=== PATIENT | female | born 1945 | race Caucasian/White ===

== ENCOUNTER → 2020-02-02 11:47 | Outpatient (BNVA) | payer MEDICARE, OTHER, SELFPAY | PROVIDERS: PCP Family Medicine; Visit Provider Urology | DX: N32.81 Overactive bladder (principal); N20.0 Calculus of kidney | CPT/HCPCS: Q3014 ==

== ENCOUNTER 2021-01-22 09:24 | Outpatient (REF) | payer MEDICARE, OTHER, SELFPAY ==
--- NOTE | ~2021-01-22 | US_ITS ---
EXAMINATION: US RETROPERITONEAL LIMITED (RENAL ONLY) CLINICAL INFORMATION: Calculus of kidney. COMPARISON: None TECHNIQUE: Real-time imaging of the kidneys. FINDINGS: RIGHT KIDNEY: 10.4 x 4.2 x 5.8 cm (SAG x AP x TRV). The kidney is normal in size, contour, and echogenicity. Renal cortical thickness is normal. No renal calculi. There are anechoic cyst measuring 0.9 0.9 x 0.9 cm and parapelvic cyst 1.5 x 1.4 x 1.2 cm LEFT KIDNEY: 10.5 x 4.0 x 4.6 cm (SAG x AP x TRV). The kidney is normal in size, contour, and echogenicity. Renal cortical thickness is normal. No renal calculi or hydronephrosis. There are multiple parapelvic renal cysts. The largest one measuring 1.3 x 2.1 x 1.2 cm. US/US renal BI IMPRESSION: Bilateral renal cysts. There are no echogenic stones or hydronephrosis.
== END 2021-01-22 09:25 | disposition home or self-care (01) ==
LOC: HO.US 09:24
PROVIDERS: PCP Family Medicine; Visit Provider Urology
DX: N20.0 Calculus of kidney (principal)
CPT/HCPCS: 76775

== ENCOUNTER → 2021-02-13 10:52 | Outpatient (BNVA) | payer MEDICARE, OTHER, SELFPAY | PROVIDERS: PCP Family Medicine | DX: N28.1 Cyst of kidney, acquired (principal); N32.81 Overactive bladder | CPT/HCPCS: Q3014 ==

== ENCOUNTER 2022-01-31 10:00 | Outpatient (REF) | payer MEDICARE, OTHER, SELFPAY ==
--- NOTE | ~2022-01-31 | US_ITS ---
EXAMINATION: US RETROPERITONEAL LIMITED (RENAL ONLY) CLINICAL INFORMATION: Calculus of kidney. COMPARISON: Renal ultrasound 01/22/2021. TECHNIQUE: Real-time imaging of the kidneys. FINDINGS: RIGHT KIDNEY: 10.4 x 4.4 x 5.7 cm (SAG x AP x TRV). The kidney is normal in size, contour, and echogenicity. Renal cortical thickness is normal. No renal calculi or hydronephrosis. There are multiple peripelvic anechoic cysts. The largest cyst measures 3.0 x 1.4 x 3.7 cm. Lower pole cysts measure 1.0 x 0.7 x 1.0 cm and 0.7 x 0.4 x 0.7 cm. A mid pole cyst measures 0.8 x 0.7 x 0.7 cm. LEFT KIDNEY: 10.5 x 6.4 x 5.3 cm (SAG x AP x TRV). The kidney is normal in size, contour, and echogenicity. Renal cortical thickness is normal. No renal calculi or hydronephrosis. There are multiple anechoic cortical and peripelvic cysts. The largest peripelvic cyst measures 2.5 x 1.4 x 2.4 cm. Mid pole cysts measure 1.3 x 1.0 x 0.9 cm and 0.8 x 0.2 x 0.7 cm. There is echogenic vascular calcification in the mid pole measuring 0.5 x 0.5 x 0.5 cm. US/US renal BI IMPRESSION: 1. Bilateral renal cysts. 2. No echogenic stones or hydronephrosis is seen. 3. There is an echogenic vascular calcification in the mid pole of the left kidney.
== END 2022-01-31 10:01 | disposition home or self-care (01) ==
LOC: HO.US 10:00
DX: N20.0 Calculus of kidney (principal); N32.81 Overactive bladder
CPT/HCPCS: 76775

== ENCOUNTER → 2022-02-19 11:19 | Outpatient (BNVA) | payer MEDICARE, OTHER, SELFPAY | PROVIDERS: PCP Family Medicine; Visit Provider Nurse Practitioner Family | DX: N20.0 Calculus of kidney (principal); N28.1 Cyst of kidney, acquired | CPT/HCPCS: 51798; 99212 ==

== ENCOUNTER 2023-02-26 08:17 | Outpatient (REF) | payer MEDICARE, SELFPAY ==
--- NOTE | ~2023-02-26 | US_ITS ---
EXAMINATION: US RETROPERITONEAL LIMITED (RENAL ONLY) CLINICAL INFORMATION: Renal calculus. COMPARISON: Renal ultrasound 01/31/2022 and 01/22/2021. TECHNIQUE: Real-time imaging of the kidneys. FINDINGS: RIGHT KIDNEY: 10.2 x 4.5 x 3.9 cm (SAG x AP x TRV). The kidney is normal in size, contour, and echogenicity. Renal cortical thickness is normal. No hydronephrosis. There are multiple simple parapelvic cysts, largest is in the mid pole measuring 1.9 x 3.0 x 2.1 cm. No imaging follow-up is recommended. 0.3 x 0.2 x 0.3 cm nonobstructing calculus is seen. LEFT KIDNEY: 10.6 x 4.9 x 3.9 cm (SAG x AP x TRV). The kidney is normal in size, contour, and echogenicity. Renal cortical thickness is normal. No renal calculi or hydronephrosis. There are multiple simple parapelvic cysts, the largest is in the mid pole and measures 1.6 x 2.8 x 1.7 cm. No imaging follow-up is recommended. 0.4 x 0.2 x 0.3 cm lateral upper pole cortical calcification is seen. US/US renal BI IMPRESSION: 1. 0.3 cm nonobstructing calculus in the right kidney. 2. 0.4 cm lateral upper pole cortical calcification in the left kidney.
== END 2023-02-26 08:18 | disposition home or self-care (01) ==
LOC: HO.US 08:17
PROVIDERS: PCP Family Medicine; Visit Provider Nurse Practitioner Family
DX: N20.0 Calculus of kidney (principal)
CPT/HCPCS: 76775

== ENCOUNTER 2023-03-12 08:31 | Outpatient (AMB) | payer MEDICARE, SELFPAY ==
--- NOTE | 2023-03-12 08:49 | MHC.OFFVIS ---
Intake Intake Visit Reasons: 1y/US(set) Intake Note: Patient presents today for a follow-up: U/S Meds- Vesicare Allergies to Antibiotic- No Known Allergies Blood Thinner- Warfarin Post Void Residual: 83 Patient Symptoms: Patient stated having no symptoms of UTI, and mentioned Vesicare is working very well for her bladder. 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 She presents to the office today for a follow up of her overactive bladder as well as her history of nephrolithiasis. When asked patient reports to be doing well. She denies urinary issues. Recent renal imaging results reviewed with the patient today. Right kidney with no hydronephrosis. Are multiple simple peripelvic cyst largest in the mid pole measuring 3 cm. No imaging follow-up is recommended per radiology report. There is a 3 mm nonobstructing calculus seen. Left kidney with no hydronephrosis. There are multiple simple peripelvic cyst the largest in the mid pole measuring approximately 2.8 cm. No imaging follow-up recommended per radiology report. 4 mm lateral upper pole cortical calcification is seen. When asked she reports to be drinking plenty of water daily. She reports to be happy with current voiding parameters on 5 mg of VESIcare daily. When asked she denies urinary urgency, urinary frequency, incontinence, nocturia, hematuria, dysuria, foul smelling urine, changes to urinary stream, flank pain, fever, and or chills. In office urinalysis results reviewed with the patient today. PVR 83 mL. She discusses taking care for horse and spending time with her 2 grandchildren. She otherwise denies any other issues or concerns at this time. [facility] Medical History Renal cyst Review of Systems Const Reports no additional complaints Eyes Reports no additional complaints ENT Reports no additional complaints Card Reports no additional complaints Resp Reports no additional complaints GI Reports no additional complaints Reports as per HPI Musc Reports no additional complaints Neuro Reports no additional complaints Psych Reports no additional complaints Endo Reports no additional complaints Willam/Lymph Reports no additional complaints Aller/Immun Reports no additional complaints Physical Exam Const General: cooperative, healthy appearing, comfortable, no acute distress, well developed, alert and awake Nutritional Appearance: overweight Orientation/consciousness: patient oriented x3 Limitations: no limitations HEENT Head: Yes normal to inspection, Yes normocephalic and Yes atraumatic Ears: hearing grossly normal bilaterally Eyes General: appearance normal, both eyes and all related structures Neck Neck: Yes normal visual inspection and Yes trachea midline Chest Chest palpation & inspection: normal inspection of the chest Resp Effort & Inspection: normal respiratory effort and able to speak in complete sentences Cardio Rate: regular rate GI Inspection: Yes normal to inspection General: Yes no CVA tenderness Back/Spine/Pelvis Back: no CVA tenderness Skin General skin exam: no rashes or lesions noted Neuro General: patient oriented x3 Extrem General: Yes normal to inspection Psych Appearance: grossly normal and well kempt Mental Status: mental status grossly normal Speech and movement: Normal speech and movement present and Clear speech present Affect: normal affect Attitude: cooperative Thought process: Normal thought process present Thought content: Normal thought content present Insight: Fair insight present (Psych) Judgement: Fair judgement present (Psych) Office Procedures Post Void Residual Post Residual Void Post Void Residual (PVR): 83 [id number] Void Residual by ultrasound Results AMB Urinalysis, Automated UA Leukoctes 70 Gomez/uL Last Edit by Kasey Oshea CMA on 03/12/23 09:08 UA Nitrite Negative Last Edit by Kasey Oshea CMA on 03/12/23 09:08 UA Urobilinogen 0.2 mg/dL Last Edit by Kasey Oshea CMA on 03/12/23 09:08 UA Protein 15 mg/dL Last Edit by Kasey Oshea CMA on 03/12/23 09:08 UA pH 6.0 Last Edit by Kasey Oshea CMA on 03/12/23 09:08 UA Blood 25 Oumar/uL Last Edit by Kasey Oshea CMA on 03/12/23 09:08 UA Specific Meeker 1.030 Last Edit by Kasey Oshea CMA on 03/12/23 09:08 UA Ketone Negative Last Edit by Kasey Oshea CMA on 03/12/23 09:08 UA Bilirubin 0 mg/dL Last Edit by Kasey Oshea CMA on 03/12/23 09:08 UA Glucose 0 mg/dL Last Edit by Kasey Oshea CMA on 03/12/23 09:08 Results Reviewed Results Reviewed: Laboratory Last Values Urine pH (Auto) 6.0 03/12/23 09:04 Specific Meeker (Auto) 1.030 03/12/23 09:04 Urine Protein (Auto) 15 mg/dL 03/12/23 09:04 Glucose (UA)(Auto) 0 mg/dL 03/12/23 09:04 Urine Ketones (Auto) Negative 03/12/23 09:04 Urine Blood (Auto) 25 Oumar/uL 03/12/23 09:04 Urine Nitrite (Auto) Negative 03/12/23 09:04 Urine Bilirubin (Auto) 0 mg/dL 03/12/23 09:04 Urine Urobilinogen (Auto) 0.2 mg/dL 03/12/23 09:04 Leukocyte Esterase (Auto) 70 Gomez/uL 03/12/23 09:04 Date of Service: 02/26/23 EXAMINATION: US RETROPERITONEAL LIMITED (RENAL ONLY) FINDINGS: RIGHT KIDNEY: 10.2 x 4.5 x 3.9 cm (SAG x AP x TRV). The kidney is normal in size, contour, and echogenicity. Renal cortical thickness is normal. No hydronephrosis. There are multiple simple parapelvic cysts, largest is in the mid pole measuring 1.9 x 3.0 x 2.1 cm. No imaging follow-up is recommended. 0.3 x 0.2 x 0.3 cm nonobstructing calculus is seen. LEFT KIDNEY: 10.6 x 4.9 x 3.9 cm (SAG x AP x TRV). The kidney is normal in size, contour, and echogenicity. Renal cortical thickness is normal. No renal calculi or hydronephrosis. There are multiple simple parapelvic cysts, the largest is in the mid pole and measures 1.6 x 2.8 x 1.7 cm. No imaging follow-up is recommended. 0.4 x 0.2 x 0.3 cm lateral upper pole cortical calcification is seen. IMPRESSION: 1. 0.3 cm nonobstructing calculus in the right kidney. 2. 0.4 cm lateral upper pole cortical calcification in the left kidney. Assessment & Plan Assessment & Plan (1) Nephrolithiasis: Code(s): N20.0 - Calculus of kidney (2) Renal cyst: Code(s): N28.1 - Cyst of kidney, acquired (3) Overactive bladder: Code(s): N32.81 - Overactive bladder Plan In office urinalysis results reviewed with the patient today; as noted above. Patient currently denies any bothersome urinary issues or concerns. She reports be happy with current voiding parameters on 5 mg of VESIcare daily; will continue Recent renal imaging results reviewed with the patient today; as noted above. Discussed at length potential causes for renal cyst as well as nephrolithiasis. PVR 83 mL. Renal ultrasound in 1 year. Discussed, educated, and stressed the iportance of drinking adequate amount of water daily Follow-up in 1 year with imaging to be completed prior; or sooner with any issues, concerns, and or questions. Orders: Orders AMB Urinalysis Automated Today R33.9 - Retention of urine, unspecified AMB Post Void Residual by ultrasound Today N32.81 - Overactive bladder, R33.9 - Retention of urine, unspecified US renal BI 364 Days N20.0 - Calculus of kidney, N28.1 - Cyst of kidney, acquired Patient Instructions: The patient had an opportunity to ask questions regarding the treatment plan. All questions were answered. Physical exam, labs, and imaging were discussed and reviewed in detail. As well as risks, benefits, and discussion of treatment choices. No major barriers to understanding were identified. The patient expressed understanding and agreement with the above treatment plan. The patient was made aware they should contact our office by phone for worsening of their current condition, the appearance of new symptoms, or with any questions or concerns. Compliance is encouraged with any medications and follow up testing that is ordered. It is a privilege to be allowed the opportunity to participate in? your urological care.? Again, if you have any questions or concerns If you have any questions or concerns please do not hesitate to contact me. The office is [phone]. This note is constructed using voice recognition software. While every effort has been made to ensure accuracy dispatch manager errors may have been included. Yours sincerely, EMILY Siegel-BC Coding Level of Care Code Est Pt Level 3 (29523) Diagnoses Nephrolithiasis N20.0 Renal cyst N28.1 Overactive bladder N32.81 CPT Codes Post Residual Void - PVR CPT Code: 65426-[id number] Void Residual by ultrasound ([id number])
== END 2023-03-12 10:07 | disposition home or self-care (01) ==
PROVIDERS: Visit Provider Nurse Practitioner Family
DX: N20.0 Calculus of kidney (principal); N28.1 Cyst of kidney, acquired; N32.81 Overactive bladder; R33.9 Retention of urine, unspecified
CPT/HCPCS: 99213

== ENCOUNTER → 2023-03-12 08:31 | Outpatient (BNVA) | payer MEDICARE, SELFPAY | PROVIDERS: Visit Provider Nurse Practitioner Family | DX: N20.0 Calculus of kidney (principal); N28.1 Cyst of kidney, acquired; N32.81 Overactive bladder | CPT/HCPCS: 51798; 81003; 99212 ==

== ENCOUNTER 2024-03-02 11:04 | Outpatient (REF) | payer MEDICARE, SELFPAY ==
--- NOTE | ~2024-03-02 | US_ITS ---
EXAMINATION: US RETROPERITONEAL LIMITED (RENAL ONLY) CLINICAL INFORMATION: Calculus of kidney. COMPARISON: None available. TECHNIQUE: Retroperitoneal ultrasound imaging with attention the kidneys was performed. FINDINGS: RIGHT KIDNEY: 10.9 x 4.6 x 5.5 cm (SAG x AP x TRV). The kidney is normal in size, contour, and echogenicity. Renal cortical thickness is normal. . Multiple parapelvic cyst There is anechoic cyst upper pole measuring 1.1 x 0.92 x 0.75 cm, 0.58 x 0.60 x 0.47 and echogenic stone in mid pole measuring 0.15 x 0.22 x 0.22 cm. No hydronephrosis. LEFT KIDNEY: 9.7 x 4.4 x 4.4 cm (SAG x AP x TRV). The kidney is normal in size, contour, and echogenicity. Renal cortical thickness is normal. There are multiple anechoic parapelvic cyst. There is anechoic cyst in upper pole measuring 0.45 x 0.40 x 0.50 cm in mid pole laterally measuring 1.0 x 0.71 x 1.3 cm.. No hydronephrosis. US/US renal BI IMPRESSION: Multiple bilateral renal cysts. Nonobstructive echogenic stone midpole right kidney without caliectasis or hydronephrosis. Electronically signed by: Ras Wakefield MD 03/03/2024 08:57 AM EST
== END 2024-03-02 11:05 | disposition home or self-care (01) ==
LOC: HO.US 11:04
PROVIDERS: PCP Family Medicine; Visit Provider Nurse Practitioner Family
DX: N20.0 Calculus of kidney (principal); N28.1 Cyst of kidney, acquired
CPT/HCPCS: 76775

== ENCOUNTER → 2024-03-02 11:06 | Outpatient (BNV) | payer MEDICARE, SELFPAY | PROVIDERS: PCP Family Medicine; Visit Provider Radiology Diagnostic Radiology | DX: N20.0 Calculus of kidney (principal) | CPT/HCPCS: 76775 ==

== ENCOUNTER 2024-03-30 11:31 | Outpatient (AMB) | payer MEDICARE, SELFPAY ==
--- NOTE | 2024-03-30 11:31 | A.OFFVIS_ITS ---
Intake Visit Reasons: Followup/Imaging(set) Intake Note: Patient presents today for tele visit follow up on: OAB, Kidney Stone, and Ultrasound Results Meds- Vesicare Allergies to Antibiotic- No Known Allergies Blood Thinner- Apixaban Patient Symptoms: Patient stated having no symptoms of UTI, and mentioned Mariaelena shaw is working very well for her bladder. 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 She presents to the office today for a follow up of her overactive bladder as well as her history of nephrolithiasis. When asked patient reports to be doing well. She denies urinary issues. Recent renal imaging results reviewed with the patient today. 03/13 bilateral kidneys are normal in size, contour, and echogenicity. Multiple bilateral renal cysts that are noted. Nonobstructive echogenic stone mid pole right kidney measuring approximately 2 mm. No hydronephrosis noted bilaterally. When asked she reports to be drinking plenty of water daily. She reports to be happy with current voiding parameters on 5 mg of VESIcare daily. When asked she denies urinary urgency, urinary frequency, incontinence, nocturia, hematuria, dysuria, foul smelling urine, changes to urinary stream, flank pain, fever, and or chills. She discusses taking care of her horse and spending time with her 2 grandchildren. She otherwise denies any other issues or concerns at this time. [facility] Medical History (Reviewed 03/12/23 @ 09:17 by MARTI Siegel Renal cyst Review of Systems Const Reports no additional complaints Eyes Reports no additional complaints ENT Reports no additional complaints Card Reports no additional complaints Resp Reports no additional complaints GI Reports no additional complaints Reports as per HPI Musc Reports no additional complaints Neuro Reports no additional complaints Psych Reports no additional complaints Endo Reports no additional complaints Willam/Lymph Reports no additional complaints Aller/Immun Reports no additional complaints Physical Exam Const General: cooperative, healthy appearing, comfortable, no acute distress, well developed, alert and awake Resp Effort & Inspection: normal respiratory effort and able to speak in complete sentences Psych Appearance: grossly normal Speech and movement: Clear speech present Affect: normal affect Attitude: cooperative Thought process: Normal thought process present Thought content: Normal thought content present Insight: Fair insight present (Psych) Judgement: Fair judgement present (Psych) Telehealth Telehealth Telehealth Platform: Consumr Location of provider rendering services: practice address Location of patient: address on file Patient Identification confirmed using: Name, : Yes Telehealth method: video Patient verbally consented to treatment: Yes Patient verbally consented to billing insurance company: Yes Patient informed of any privacy concerns related to visit: Yes Minutes spent on Phone/Video with Pt.: 15 Results Reviewed Results Reviewed: Date of Service: 03/02/24 EXAMINATION: US RETROPERITONEAL LIMITED (RENAL ONLY) FINDINGS: RIGHT KIDNEY: 10.9 x 4.6 x 5.5 cm (SAG x AP x TRV). The kidney is normal in size, contour, and echogenicity. Renal cortical thickness is normal. . Multiple parapelvic cyst There is anechoic cyst upper pole measuring 1.1 x 0.92 x 0.75 cm, 0.58 x 0.60 x 0.47 and echogenic stone in mid pole measuring 0.15 x 0.22 x 0.22 cm. No hydronephrosis. LEFT KIDNEY: 9.7 x 4.4 x 4.4 cm (SAG x AP x TRV). The kidney is normal in size, contour, and echogenicity. Renal cortical thickness is normal. There are multiple anechoic parapelvic cyst. There is anechoic cyst in upper pole measuring 0.45 x 0.40 x 0.50 cm in mid pole laterally measuring 1.0 x 0.71 x 1.3 cm.. No hydronephrosis. IMPRESSION: Multiple bilateral renal cysts. Nonobstructive echogenic stone midpole right kidney without caliectasis or hydronephrosis. Assessment & Plan Assessment & Plan (1) Nephrolithiasis: Code(s): N20.0 - Calculus of kidney Category: Medical (2) Renal cyst: Code(s): N28.1 - Cyst of kidney, acquired Category: Medical (3) Overactive bladder: Code(s): N32.81 - Overactive bladder Category: Medical Plan Recent renal imaging results reviewed with the patient today; as noted above. Patient currently denies any bothersome urinary issues or concerns. She reports be happy with current voiding parameters on 5 mg of VESIcare daily; will continue Discussed at length potential causes for renal cyst as well as nephrolithiasis. Renal ultrasound in 1 year. Discussed, educated, and stressed the importance of continuing to drink plenty water daily Follow-up in 1 year with imaging to be completed prior; or sooner with any issues, concerns, and or questions. Orders: Orders US renal BI 1 Year N20.0 - Calculus of kidney Patient Instructions: The patient had an opportunity to ask questions regarding the treatment plan. All questions were answered. Physical exam, labs, and imaging were discussed and reviewed in detail. As well as risks, benefits, and discussion of treatment choices. No major barriers to understanding were identified. The patient expressed understanding and agreement with the above treatment plan. The patient was made aware they should contact our office by phone for worsening of their current condition, the appearance of new symptoms, or with any questions or concerns. Compliance is encouraged with any medications and follow up testing that is ordered. It is a privilege to be allowed the opportunity to participate in? your urological care.? Again, if you have any questions or concerns If you have any questions or concerns please do not hesitate to contact me. The office is [phone]. This note is constructed using voice recognition software. While every effort has been made to ensure accuracy live hanger errors may have been included. Yours sincerely, OSMAN Siegel Coding Level of Care Code Tele Est Pt Level 3 (05627) Diagnoses Nephrolithiasis N20.0 Renal cyst N28.1 Overactive bladder N32.81
--- OUTSIDE RECORDS SUMMARY | 2024-03-30 13:10 | XMS_ITS | Continuity of Care Document ---
Author Organization [place] - [facility],, MILADYS AGEE MD Address [address] [facility] [address] [place] [address] Care Team Providers Care Dietary Aide Cook Name Role Phone MASOOD SMITH Primary Care Provider Assessment No assessment recorded. Plan of Treatment Reminders Order Date Submit Date Provider Last Modified By Organization Details Last Modified Time Details Appointments None recorded. Lab cytology report, thin prep, smear or scraping, cervical or vaginal 2024 025 [facility], [address], [place], [address], 14:21:07 Referral None recorded. Procedures None recorded. Surgeries None recorded. Imaging MAMMO, screening, digital, bilateral - Breast Aspiration and/or Biopsy if needed 2024 025 [facility], [address], [place], [address], 12:01:39 bone density 2024 025 [facility], [address], [address], [place], [address], 12:01:39 Medication Orders None recorded. Patient TargetsNo targets recorded. Patient Instructions Encounter Date Encounter Id Patient Instructions Last Modified By Organization Details Last Modified Time 03/05/2024 [id number] advance beneficiary notice information Not available 03/05/2024 11:30:47 advance care planning for heart failure: care instructions Not available 03/05/2024 11:30:47 atrophic vaginitis: care instructions Not available 03/05/2024 11:30:47 learning about healthy weight [email or web address] Not available 03/05/2024 11:30:47 She is here for annual exam, is doing well, still working at the [employer]. She appears to be doing well. Monthly self breast exam was taught, and stressed, and is advised to call if she discovers any new mass in the breast. Not available 03/05/2024 11:30:55 Reason for Referral None Reported. 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 Procedures Surgical History Date Name Laterality Status Provider Name and Address Organization Details Recorded Time 04/08/19 23 Most Recent Mammogram completed Mayra Cuevas [place] - [facility], 12/19/2022 10:27:32 04/08/19 23 Most Recent Bone Density completed Mayra Cuevas [place] - [facility], 12/19/2022 10:27:25 08/27/19 18 incision of thoracic wall and diaphragm completed Aviva Navarrete [place] - [facility], 12/18/2020 09:49:57 02/17/19 03 Other completed Miladys Agee MD [address], [place], [address], [place] - [facility], 11/24/2013 09:24:59 02/17/18 81 Other completed Aviva Navarrete [place] - [facility], 10/13/2012 08:25:29 02/17/18 77 Total Abdominal Hysterectomy completed Miladys Agee MD [address] [facility],[address], [place], [address], [place] [facility], 10/13/2012 09:24:34 Imaging Results None recorded. Procedure Notes None recorded. Medical Equipment None Reported. Allergies No known drug allergies Medications Name Sig Start Date Stop Date Status Note LastModified by Organization Details LastModified Time amoxicillin 500 mg capsule active Not Available Not Available Not Available silver sulfadiazin e 1 % topical cream 12/18 completed Not Available Not Available Not Available doxycycline hyclate 100 mg capsule TAKE 1 CAPSULE BY MOUTH TWICE A DAY FOR 7 DAYS 12/19 completed Not Available Not Available Not Available donepezil 5 mg tablet 12/18 completed Not Available Not Available Not Available trazodone 50 mg tablet 12/18 completed Not Available Not Available Not Available azithromyci n 250 mg tablet TAKE 2 TABLETS BY MOUTH TODAY, THEN TAKE 1 TABLET DAILY FOR 4 DAYS DIRECTED 03/05 completed Not Available Not Available Not Available ibuprofen 800 mg tablet active Not Available Not Available Not Available Lidocaine Viscous 2 % mucosal solution 03/05 completed Not Available Not Available Not Available benzonatate 200 mg capsule TAKE 1 CAPSULE BY MOUTH THREE TIMES A DAY FOR 10 DAYS 12/19 completed Not Available Not Available Not Available hydrocodone 5 mg-acetamin ophen 325 mg tablet 12/18 completed Not Available Not Available Not Available donepezil 10 mg tablet TAKE 1 TABLET BY MOUTH EVERY DAY AT BEDTIME FOR 10 DAYS active Not Available Not Available No t Available sucralfate 1 gram tablet TAKE 1 TABLET BY MOUTH 3 TIMES A DAY BEFORE MEALS AND AT BEDTIME FOR 14 DAYS 12/19 completed Not Available Not Available Not Available prednisone 20 mg tablet TAKE 2 TABLETS BY MOUTH EVERY DAY FOR 5 DAYS 03/05 completed Not Available Not Available Not Available warfarin 2.5 mg tablet TAKE 2-4 TABS BY MOUTH ONCE DAILY DIRECTED BY THE [facility]. DOSE INCREASE 12/19 completed Not Available Not Available Not Available peg-electro lyte solution 420 gram oral solution 12/18 completed Not Available Not Available Not Available omeprazole 40 mg capsule,del ayed release 12/18 completed Not Available Not Available Not Available oxycodone-a cetaminophe n 5 mg-325 mg tablet 12/18 completed Not Available Not Available Not Available citalopram 20 mg tablet TAKE 1 TABLET BY MOUTH TWICE A DAY active Not Available Not Available No t Available trazodone 100 mg tablet TAKE 1 TABLET BY MOUTH EVERYDAY AT BEDTIME active Not Available Not Available No t Available benzonatate 100 mg capsule TAKE 1 CAPSULE BY MOUTH 3 TIMES A DAY FOR 5 DAYS NEEDED FOR COUGH 03/05 completed Not Available Not Available Not Available doxycycline monohydrate 100 mg capsule TAKE 1 CAPSULE BY MOUTH TWICE A DAY FOR 7 DAYS 12/19 completed Not Available Not Available Not Available pantoprazol e 40 mg tablet,karen yed release TAKE 1 TABLET BY MOUTH TWICE DAILY FOR 30 DAYS active Not Available Not Available No t Available hydrocodone 7.5 mg-acetamin ophen 750 mg tablet active Not Available Not Available No t Available lisinopril 10 mg tablet active Not Available Not Available Not Available prednisone 50 mg tablet TAKE 1 TABLET (ORAL) DAILY FOR 5 DAYS TAKE IN THE MORNING 12/19 completed Not Available Not Available Not Available diclofenac sodium 75 mg tablet,karen yed release TAKE 1 TABLET BY MOUTH TWICE A DAY active Not Available Not Available No t Available nefazodone 100 mg tablet active Not Available Not Available Not Available ibuprofen 600 mg tablet 12/18 completed Not Available Not Available Not Available albuterol sulfate HFA 90 mcg/actuati on aerosol inhaler INHALE 1 PUFF EVERY 4 HOURS NEEDED FOR SHORTNESS OF BREATH OR WHEEZING active Not Available Not Available No t Available fluticasone propionate 50 mcg/actuati on nasal spray,suspe nsion INSERT 2 PUFFS EACH INTRANASA L - BILATERAL LY DAILY FOR 30 DAYS active Not Available Not Available No t Available amoxicillin 875 mg-potassiu m clavulanate 125 mg tablet TAKE 1 TABLET BY MOUTH EVERY 12 HOURS FOR 7 DAYS 03/05 completed Not Available Not Available Not Available oxycodone 5 mg tablet 12/18 completed Not Available Not Available Not Available enoxaparin 100 mg/mL subcutaneou s syringe INJECT 1 ML INTO THE SKIN EVERY 12 HOURS DIRECTED BY [facility] 12/19 completed Not Available Not Available Not Available azithromyci n 500 mg tablet TAKE 1 TABLET BY MOUTH EVERY DAY FOR 5 DAYS START ON 04/10/2204/17 completed Not Available Not Available Not Available Premarin 0.625 mg/gram vaginal cream INSERT 0.5 G VAGINALLY EVERY AT BEDTIME. 12/18 completed Not Available Not Available Not Available rosuvastati n 10 mg tablet TAKE 1 TABLET BY MOUTH EVERY DAY active Not Available Not Available No t Available memantine 10 mg tablet TAKE 1 TABLET BY MOUTH EVERY DAY FOR 2 WEEKS, THEN INCREASE TO 1 TABLET BY MOUTH TWICE A DAY active Not Available Not Available No t Available solifenacin 5 mg tablet active Not Available Not Available Not Available chlorhexidi ne gluconate 0.12 % mouthwash active Not Available Not Available No t Available aspirin active Not Available Not Avail able Not Available vitamin E active Not Available Not Sharla ilable Not Available Calcium 500 active Not Available Not A vailable Not Available Zostavax (PF) 19,400 unit/0.65 mL subcutaneou s suspension active Not Available Not Available N ot Available vitamin B comp and C no.3 active Not Available Not Available Not Available peg 3350-electr olytes 236 gram-22.74 gram-6.74 gram-5.86 gram solution TAKE 8 OUNCES BY MOUTH DIRECTED BY 12/18 completed Not Available Not Available Not Available Myrbetriq 25 mg tablet,exte nded release 12/18 completed Not Available Not Available Not Available Eliquis 5 mg tablet TAKE 1 TABLET BY MOUTH TWICE A DAY active Not Available Not Available No t Available Afluria 0379-5005(P F) 45 mcg (15 mcg x 3)/0.5 mL intramuscul ar syringe TO BE ADMINISTE RED BY PHARMACIS T FOR IMMUNIZAT ION active Not Available Not Available No t Available Fluzone High-Dose 2014- (PF) 180 mcg/0.5 mL intramuscul ar syringe TO BE ADMINISTE RED BY PHARMACIS T FOR IMMUNIZAT ION active Not Available Not Available No t Available Fluvirin (PF) 45 mcg (15 mcg x 3)/0.5 mL intramuscul ar syringe ADM 0.5ML IM UTD active Not Available Not Available No t Available Fluzone High-Dose 8069-9328 (PF) 180 mcg/0.5 mL intramuscul ar syringe ADM 0.5ML IM UTD active Not Available Not Available No t Available Fluzone High-Dose (PF) 180 mcg/0.5 mL intramuscul ar syringe ADM 0.5ML IM UTD active Not Available Not Available No t Available Vitals Date Recorded Body weight Body mass index (BMI) Body height Heart rate Systolic blood pressure Diastolic blood pressure Provider Name and Address Organization Details Last Updated DateTime 5 26819.4 5 g 38.8 kg/m2 160.02 cm 59 /min 126 mm[Hg] 78 mm[Hg] Aviva Navarrete [place] - [facility], 5 11:04:10 Social History Question Answer Notes LastModified by Organizat ion Details LastModified Time Tobacco Smoking Status Former Smoker Not Available [facility] 12/21/2019 03:19:42 What Is Your Level Of Alcohol Consumption? None [id number] Information not available 12/21/2019 What Is Your Level Of Caffeine Consumption? None [id number] Information not available 12/21/2019 In The 14 Days Before Symptom Onset, Have You Had Close Contact With A Laboratory-confir med COVID-19 While That Case Was Ill? No Information not available 12/18/2020 In The 14 Days Before Symptom Onset, Have You Had Close Contact With A Person Who Is Under Investigation For COVID-19 While That Person Was Ill? No Information not available 12/18/2020 Have You Been To An Area Known To Be High Risk For COVID-19? No Information not available 12/18/2020 Are You Currently Employed? No Information not available 12/18/2020 What Type Of Diet Are You Following? REGULAR [id number] Information not available 12/21/2019 Which Illicit Or Recreational Drugs Have You Used? No [id number] Information not available 12/21/2019 Do You Reside In Or Have You Traveled To An Area Where Ebola Virus Transmission Is Active? No [id number] Information not available 12/21/2019 Do You Or Have You Ever Used E-cigarettes Or Vape? Never Used Electronic Cigarettes [id number] Information not available 12/21/2019 Education 2 Year College Informatio n not available 10/13/2012 What Is The Highest Grade Or Level Of School You Have Completed Or The Highest Degree You Have Received? [id number] Information not available 12/18/2020 What Is Your Occupation? Retired [id number] Information not available 12/21/2019 How Many Days In The Past Year Have You Had A Heavy Drinking Consumption (4+ Female, 5+ Male)? 0 Information no t available 12/16/2016 Are There Any Guns Present In Your Home? No Information not available 12/18/2020 High Number Of Sexual Partners No Information not available 12/16/2016 To Which Gender Do You Self-identify? Female Information not available 12/16/2016 Marital Status Single Informatio n not available 10/13/2012 What Was The Date Of Your Most Recent Tobacco Screening? 03/05/2024 Information not available 03/05/2024 What Is Your Relationship Status? Single Information not available 12/18/2020 Are You Sexually Active? Yes [id number] Information not available 12/21/2019 Do You Or Have You Ever Used Smokeless Tobacco? Never Used Smokeless Tobacco [id number] Information not available 12/21/2019 How Much Tobacco Do You Smoke? No [id number] Information not available 12/21/2019 General Stress Level Low Information not available 10/13/2012 Do You Feel Stressed (tense, Restless, Nervous, Or Anxious, Or Unable To Sleep At Night)? [id number] Information not available 03/05/2024 Do You Use Any Illicit Or Recreational Drugs? No Information not available 12/18/2020 How Many Years Have You Smoked Tobacco? 15 [id number] Information not available 12/21/2019 Have You Recently (within The Last 12 Weeks, Or During A Current ) Traveled To Or Lived In A Zika-affected Area? No Information not available 12/18/2018 Do You Or Have You Ever Used Any Other Forms Of Tobacco Or Nicotine? No Information not available 12/18/2020 Sex: Female Functional Status Question Answer Note LastModified by Organization D etails LastModified Time What is your exercise level? Moderate [id number] Information not available 12/21/2019 Mental Status None recorded. Family History Relationship Description Onset Age of this Age Resolved Age Notes LastModified by Organization Details LastModified Time Brother Malignant neoplastic disease 60 pancre atic (previ ously record ed as Cancer ) Not available 11/30/2014 09:04:24 Father Heart disease previo usly record ed as Heart Proble m Not available 11/30/2014 09:04:24 Mother Heart disease previo usly record ed as Heart Proble m Not available 11/30/2014 09:04:24 Medical History Condition Response Anesthesia complications Y High Blood Pressure N Autoimmune Condition N Kidney or Bladder Problems Y Thyroid Problems N Depression Y Lung Disease N GI Problems N Defects or Inherited Disease N Anemia N History of Ovarian Cancer N History of Breast Cancer N DUSTIN exposure N BRCA testing in past N Osteopenia N Psychiatric Illness N Anxiety Disorder N Diabetes N Arthritis Y Headaches or Migraines N Infertility N Asthma N History of Cancer Y Endometriosis N Hepatitis N Heart Disease N Hypertension N Osteoporosis N Gynecological History Statement/Question Response If Post Menopausal, Age at Menopause 30 Age at Menarche 11 Most Recent Mammogram 04/08/2022 Age at First Child 19 Most Recent Bone Density 04/08/2022 Obstetrics History GPAL:G 1 P 1 0 0 1 Type Value Full Term 1 Living 1 Total 1 Immunizations Vaccine Type Date Status Note Provider Nam e and Address Organization Details Recorded Time zoster live 2 completed [place] [facility], 12/19/2022 10:22:24 influenza, unspecified formulation 2 completed [place] Zhang in [facility], 12/19/2022 10:22:24 Influenza, split virus, trivalent, preservative 4 completed [place] Zhang in [facility], 12/19/2022 10:22:24 Influenza, split virus, quadrivalent, preservative 7 completed Mayra veragra [place] [facility], 12/19/2022 10:22:24 Influenza, split virus, quadrivalent, preservative 9 completed Aviva vergara [place] - [facility], 12/18/2018 08:53:19 Influenza, split virus, quadrivalent, preservative 1 completed Mayra vergara [place] - [facility], 12/19/2022 10:22:24 COVID-19, mRNA, LNP-S, PF, 100 mcg/0.5mL dose or 50 mcg/0.25mL dose 1 completed Mayra vergara [place] - [facility], 12/19/2022 10:22:24 Influenza, split virus, quadrivalent, preservative 2 completed Mayra vergara [place] - [facility], 12/19/2022 10:22:24 Influenza, adjuvanted, trivalent, PF 8 completed Mayra vergara [place] - [facility], 12/19/2022 10:22:24 Influenza, high-dose, quadrivalent, PF 1 completed Mayra vergara [place] - [facility], 12/19/2022 10:22:24 Influenza, adjuvanted, quadrivalent, PF 2 completed Mayra vergara [place] - [facility], 12/19/2022 10:22:24 COVID-19, mRNA, LNP-S, PF, 100 mcg/0.5mL dose or 50 mcg/0.25mL dose 1 completed Mayra vergara [place] - [facility], 12/19/2022 10:22:24 COVID-19, mRNA, LNP-S, PF, 100 mcg/0.5mL dose or 50 mcg/0.25mL dose 1 completed Mayra vergara [place] - [facility], 12/19/2022 10:22:24 COVID-19, mRNA, LNP-S, PF, 100 mcg/0.5mL dose or 50 mcg/0.25mL dose 1 completed Mayra Cuevas null, [place] - [facility], 12/19/2022 10:22:24 COVID-19, mRNA, LNP-S, bivalent, PF, 50 mcg/0.5 mL or 25mcg/0.25 mL dose 2 completed Mayra Cuevas null, [place] - [facility], 12/19/2022 10:22:24 pneumococcal polysaccharide PPV23 0 completed Mayra vergara, [place] - [facility], 12/19/2022 10:22:24 influenza, unspecified formulation 2 completed Mayra vergara, [place] - [facility], 12/19/2022 10:22:24 zoster live 2 completed Mayra Cuevas null, [place] - [facility], 12/19/2022 10:22:24 zoster live 2 completed Mayra vergara, [place] - [facility], 12/19/2022 10:22:24 Influenza, high-dose, trivalent, PF 7 completed Mayra Cuevas null, [place] - [facility], 12/19/2022 10:22:24 Influenza, split virus, trivalent, preservative 4 completed Mayra Cuevas null, [place] [facility], 12/19/2022 10:22:24 Influenza, split virus, trivalent, preservative 1 completed Mayra Cuevas null, [place] - [facility], 12/19/2022 10:22:24 Influenza, split virus, trivalent, preservative 0 completed Mayra Cuevas null, [place] - [facility], 12/19/2022 10:22:24 Influenza, split virus, trivalent, preservative 2 completed [place]NA [place] in [facility], 12/19/2022 10:22:24 Influenza, split virus, trivalent, PF 0 completed [place] Zhang in [facility], 12/19/2022 10:22:24 Influenza, split virus, trivalent, PF 6 completed [place] Zhang in [facility], 12/19/2022 10:22:24 Td (adult), 2 Lf tetanus toxoid, preservative free, adsorbed 0 completed Mayra vergara [place] - [place] [facility], 12/19/2022 10:22:24 Past Encounters Encounter ID Performer Location Encounter Start Date Encounter Closed Date Diagnosis/Indication Diagnosis SNOMED-CT Code Diagnosis ICD10 Code Diagnosis Note [id number] MD MILADYS Mane MD [address] [facility] [facility] [place] [address] 03/05/2024 10:56:45 03/05/2024 12:01:39 History of clinical finding in subject 834283927 Z91.89 Screening mammography 24 105963 Z12.31 Advance care planning 71 3339348 Z71.89 Screening for osteoporosis 867488053 N95.8 Health Concerns Section Related Observation LastModified by Organization Detai ls LastModified Time None Recorded Concern Status LastModified by Organization Details LastModified Time None Recorded Payers Encounter Date Sequence Insurance Name Policy Number Policy Steward Covered Member ID Steward Member ID Guarantor Name 03/05/2024 1 [facility] (MEDICARE REPLACEMENT/A DVANTAGE - PPO) [id number] Mari Henderson [id number] Mari Henderson Notes Date Note Type Note Provider Name and Address Organization Details Recorded Time 03/05/2024 text/html She is here for annual exam, is doing well, still working at the [employer].She appears to be doing well.. Miladys Agee MD [address], [place], [address], [place] - [facility], 03/05/2024 11:31:40 OBGyn Episode No OBEpisode recorded.
--- OUTSIDE RECORDS SUMMARY | 2024-03-30 13:10 | XMS_ITS | Clinical Summary ---
Author Organization [facility] Address [address] [place] [address] Phone Care Team Providers Care Registered Nurse Midwife Name Role Phone Dayton Bautista Primary Care Provider [phone] Allergies No known active allergies Medications Acetaminophen 325 MG capsule 650 mg 9 Active Cobalamin Combinations (B-12) 100-5000 MCG sublingual tablet 9 Active ASPIRIN 81 PO Active Fexofenadine-Pseu doephedrine (LEO-D 12 HOUR PO) Take by mouth 6 Active Calcium Carb-Cholecalcife rol (CALCIUM 500/D PO) Calcium 500 Active docusate calcium (SURFAK) 240 MG capsule Take 250 mg by mouth 6 Active Misc Natural Products (GLUCOSAMINE CHONDROITIN ADV PO) Take by mouth 9 Active Melatonin 2.5 MG capsule 10 mg 9 Active Multiple Vitamins-Minerals (MULTIVITAMIN ADULT EXTRA C PO) Take by mouth 6 Active B Complex-C (VITAMIN B + C COMPLEX PO) vitamin B comp and C no.3 Active alpha tocopherol (VITAMIN E) 200 units capsule Take 400 Int'l Units by mouth 6 Active citalopram (CeleXA) 20 MG tablet 2 Active donepezil (ARICEPT) 10 MG tablet 1 Active Krill Oil ([place]-3) 500 MG capsule Take 1,000 mg by mouth 11/12/201 9 Active Probiotic Product (ALIGN PO) Take 4 mg by mouth 9 Active solifenacin (VESICARE) 5 MG tablet 1 Active traZODone (DESYREL) 100 MG tablet 1 Active pantoprazole (PROTONIX) 40 MG EC tablet Take 1 tablet by mouth in the morning and 1 tablet in the evening. Active rosuvastatin (CRESTOR) 10 MG tablet Take 1 tablet by mouth at bed time 4 Active memantine (NAMENDA) 10 MG tablet Take 10 mg by mouth in the morning and 10 mg in the evening. 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 06/11/2023 Dysphagia 06/11/2023 Eczema 06/11/2023 Erosive esophagitis 06/11/2023 H/O: pulmonary embolus 06/11/2023 History of hernia repair 06/11/2023 Hypercoagulability state 06/11/2023 Hyperlipidemia 06/11/2023 Long-term current use of anticoagulant Major depression in full remission 06/11/2023 Pulmonary embolism 06/11/2023 Paraesophageal hernia 06/11/2023 Severe obesity 06/11/2023 Stress incontinence 06/11/2023 Stricture of esophagus 06/11/2023 Thromboembolism of vein 06/11/2023 Multiple renal cysts 04/24/2021 Nephrolithiasis 04/24/2021 Abnormal renal function 03/13/2021 Cognitive disorder 03/13/2021 Coronary atherosclerosis 03/13/2021 Cyst of pancreas 03/13/2021 Overview (03/13/2021): Dr. Patel History of malignant neoplasm of colon 2 History of adenomatous polyp of colon 03/13/2021 Hydronephrosis 03/13/2021 Lung mass 03/13/2021 Overview (03/13/2021): Dr. Chico Carroll Renal failure syndrome 03/13/2021 Renal function tests outside reference range 01/ Senile osteopenia 03/13/2021 Vitamin D deficiency 03/13/2021 Primary osteoarthritis of right knee 01/08/2021 Atrophic vaginitis 12/16/2016 Immunizations Name Administration Dates Next Due Influenza Whole 11/27/2018 Influenza, Quadrivalent, Wit h Preservative 10/24/2020,11/24/2018,11/20/2016 Influenza, Unspecified 11/08/2022,2021,10/29/2021,10/24,09/30/2020,10/30/2019,11/24/2018 ,10/26/2017,11/20/2016,11/30/2015,02/2013,12/18/2011,02/17/2011, 1,12/06/2009 Moderna SARS-COV-2 12/08/2020,,04/05/2020,02/20 Moderna Sars-cov-2 (Covid-19 ) Vaccine, Mrna, Georgi Protein 11/08/2022 Pneumococcal Polysaccharide 03/20/2009 RSV RECOMBINANT 12/27/2022 SARS-CoV-2, Unspecified 11/13/2021 Td, Unspecified 03/03/2009 Tdap 12/26/2019 Zoster 10/16/2011,02/17/2011 Family History Medical History Relation Comments Cancer Brother Heart disease Father Heart disease Mother Stroke Mother Relation Status Comments Brother Father Mother Social History Tobacco Use Types Packs/Day Years Used Date Smoking Tobacco: Never Smokeless Tobacco: Never Tobacco Cessation:Counseling Given: No Alcohol Use Standard Drinks/Week Comments No 0 (1 standard drink = 0.6 oz pur e alcohol) Comments Unknown Sex and Gender Information Value Date Recorded Sex Assigned at Not on file Legal Sex Female 4:50 PM EST Gender Identity Not on file Sexual Orientation Not on file Last Filed Vital Signs Vital Sign Reading Time Taken Comments Blood Pressure 120/76 06/11/2023 3:30 PM EDT Pulse 80 06/11/2023 3:30 PM EDT Temperature - - Respiratory Rate - - Oxygen Saturation - - Inhaled Oxygen Concentration - - Weight 102 kg (225 lb) 06/11/2023 3:30 PM EDT Height - - Body Mass Index - - Plan of Treatment Upcoming Encounters Date Type Department Care Team (Late st Contact Info) Description 06/16/2024 2:45 PM EDT Office Visit [facility] [address] [place] [id number] Chase Chowdhury MD [address] [facility] [address] [place] [phone] Health Maintenance Due Date Last Done Comments Pneumococcal Vaccine: 65+ Years (2 of 2 - PCV) 03/20/2010 03/20/2009 Influenza Vaccine (#1) 2023 3, 11/13/2021, 10/29/2021, Additional history exists Hepatitis B Vaccine Aged Out No longe r eligible based on patient's age to complete this topic Insurance [facility] MEDICARE [facility] MEDICARE [facility] Care Teams Registered Nurse Midwife Relationship Specialty Start Date End Date Dayton Bautista DO [address] [place] [address] PCP - General 02/28/20
--- OUTSIDE RECORDS SUMMARY | 2024-03-30 13:10 | XMS_ITS | Data Portability ---
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 Plan of Treatment Reminders Order Date Submit Date Provider Last Modified By Organization Details Last Modified Time Details Appointments None recorded. Lab pap test, thinprep, cervical 2020 021 [id number] [facility], Cytopathology Service, [address] [place], [address], 1 07:22:00 pap test, thinprep, cervical 2021 022 [email or web address], [address] [place], [address], 2 07:58:28 pap test, thinprep, cervical 2022 023 [place] [address] [facility], [address] [place], [address], 3 07:27:30 cytology report, thin prep, smear or scraping, cervical or vaginal 2024 025 ESTELLINE [facility], [address] [place], [address], 5 14:21:07 Referral None recorded. Procedures None recorded. Surgeries None recorded. Imaging MAMMO, screening , digital, bilateral 2020 021 [facility] (Mammography), [address] [place], [address], 2 12:12:29 bone density 2020 021 [facility] (Central Scheduling Radiology), [address] [place], [address], 2 07:43:25 MAMMO, screening , digital, bilateral [address] [facility] (Central Scheduling Radiology), [address] [place], [address], 3 13:34:[address] [facility] (Central Scheduling Radiology), [address] [place], [address], 3 15:35:08 MAMMO, screening , digital, bilateral - Breast Aspiratio n and/or Biopsy if needed 2022 023 [facility] (Central Scheduling Radiology), [address] [place], [address], 4 07:34:38 bone density 2022 023 [facility] (Central Scheduling Radiology), [address] [place], [address], 4 07:34:38 MAMMO, screening , digital, bilateral - Breast Aspiratio n and/or Biopsy if needed 2024 025 [facility], [address], [place], [address], 5 12:01:39 bone density 2024 025 [facility] Orders, [address], [address], [place], [address], 5 12:01:39 Medication Orders None recorded. Patient TargetsNo targets recorded. Patient Instructions Encounter Date Encounter Id Patient Instructions Last Modified By Organization Details Last Modified Time 12/18/2020 [id number] atrophic vaginit is: care instructions Not available 12/18/2020 10:44:58 learning about healthy weight Not available 12/18/2020 10:44:58 She is here for annual exam, is doing well, still working at the [employer]. Note from 2019: She is here for annual exam, is doing well, has not used the E2 cream in a year and doesnt have an symptoms yet, will call if elects to begin again. She was recently diagnosed with mild cognitive impairment, she was started on donepezil. Her child is her health care proxy. She appears to be doing well. She is advised to get 1500 mg of calcium daily into her diet and supplements combined. There is a health benefit with adequate vitamin D supplementation to at least 400 units daily, daily aerobic exercise of 30 minutes, and stress reduction. Monthly self breast exam was taught, and stressed, and is advised to call if she discovers any new mass in the breast. Not available 12/18/2020 10:45:14 12/18/2021 [id number] advance benefici otf notice information Not available 12/18/2021 13:38:26 advance care planning for heart failure: care instructions Not available 12/18/2021 13:38:26 atrophic vaginit is: care instructions Not available 12/18/2021 13:38:25 learning about healthy weight Not available 12/18/2021 13:38:26 She is here for annual exam, is doing well, still working at the [employer]. She appears to be doing well. Monthly self breast exam was taught, and stressed, and is advised to call if she discovers any new mass in the breast. Not available 12/18/2021 13:38:42 04/17/2022 [id number] This visit is a phone telehealth visit. The patient consented to the visit by phone. The patient was at home at the time of the call and the provider and patient were the only people on the line. I was at [address] [facility], [address], [place], [place], at the time of the call. Her recent bone density showed decreased bone density compared to prior test, 7.1% right femur, 11% left femur. Still ,it is only mild osteopenia. We discussed her diagnosis of osteopenia. We reviewed the results of her bone density test, with reference to the computer images. We discussed the way that standard deviation is used for diagnosis, and what this means to her as she ages. Adequate calcium intake of 1500 mg daily, weight bearing exercise three times a week, and vitamin D supplementation of at least 400 units daily is suggested. She is advised to avoid tobacco, coffee, and steroids if possible. Benefits of an active lifestyle discussed as well. All questions answered. We discussed the different forms of medical treatment for osteoporosis, in case she might need this in the future. She will repeat the bone density testing in 2 years to assess her progress.She is aware that if her bone density diminished significantly in the intervening 2 years she may need medical therapy at that time. She is encouraged to try this preventive therapy first. Return for routine annual exam as scheduled. She has little or no calcium in her diet, after discussing her meals. We had a long discussion about how to get adequate calcium into her diet and supplements so that she does not continue to lose significant bone in the future. She has a history of vitamin d deficiency but is now taking 1000 units a day. The patient was agreeable to this plan. She is aware of the limitations caused by the covid restrictions, and this phone call. Face to face discussion for 30 minutes. Not available 04/17/2022 11:52:17 12/19/2022 [id number] advance benefici otf notice information Not available 12/19/2022 10:35:33 advance care planning for heart failure: care instructions Not available 12/19/2022 10:35:33 atrophic vaginit is: care instructions Not available 12/19/2022 10:35:33 learning about healthy weight Not available 12/19/2022 10:35:33 She is here for annual exam, is doing well, still working at the [employer]. She appears to be doing well. Monthly self breast exam was taught, and stressed, and is advised to call if she discovers any new mass in the breast. Not available 12/19/2022 10:35:27 03/05/2024 [id number] advance benefici otf notice information Not available 03/05/2024 11:30:47 advance care planning for heart failure: care instructions Not available 03/05/2024 11:30:47 atrophic vaginit is: care instructions Not available 03/05/2024 11:30:47 learning about healthy weight Not available 03/05/2024 11:30:47 She is here for annual exam, is doing well, still working at the [employer]. She appears to be doing well. Monthly self breast exam was taught, and stressed, and is advised to call if she discovers any new mass in the breast. Not available 03/05/2024 11:30:55 Reason for Referral None Reported. Results Created Date Observation Date Name Description Value Unit Range Abnormal Flag Note LastModifiedBy Organization Detail LastModifiedTime 12/19/19 21 12/18/2020 PAP1C ASE [id number] ThinP rep Pap, Image d: NEGAT LARRY FOR SQUAM OUS INTRA EPITH ELIAL LESMATTHEW N AND ANTONELLA KELLEY . Note: The Pap test is a scree mahendra test with an inher ent false negat larry rate. Autom ated presc reeni ng of all liqui d based speci mens is perfo rmed by the ThinP rep Imagi ng Syste m unles s other [place] [facility] dLucie King hers , [place]( CP) (Case elect maribel fagan bonnie d 01 04 2021) ADEQU ACY: Satis facto ry Endoc ervic al/tr ansfo rmati on zone compo nent absen t. SOURC E: ThinP rep Pap HPV IF Ascus : Refle x 16 and 18, Cervi ofeila, Image d CLINI OFELIA INFOR MATIO N: HPV If Diagn osis of ASCUS . Z12.4 Not Available [facility], Cytopathology Service [address] [place], [address], 01/04/2021 15:25:56 12/19/19 22 12/18/2021 [facility] results Wagner nt Name: IRLANDA COLMENARES nt : 1945 (Age: 76) Lab Acces maricruz #: [id number] Colle ction Date: 2021 Acces maricruz Date: 2021 Sign Out Date: 2021 Tissu e Sourc e: 1: THINP REP TEASEL SETTER PAP TEST, CERVI OFELIA: Final Diagn osis: NEGAT LARRY FOR INTRA EPITH ELIAL LESIO N OR MALIG WARREN . Atrop hy. Satis facto ry for evalu ation . Clini ofelia Histo ry: Date of Last Menst rual Perio d: not avail able Menst rual Histo ry: Post- menop ausal Contr acept larry Histo ry: not avail able Ancil mima Testi ng: HPV (ASCU S) Case image d by the ThinP rep Imagi ng Syste m with karla rothman rescr lashanda g or ahmet sawant. Perfo rmed at [facility] ate Refer ence Labor atory depar tment of Cytol ogy, [address] [place] Clini ofelia Histo ry (othe r): z91.8 9, LPS 01/07 neg, routi ne scree n Phone #: [phone], On-Ca ll Patho logis t: [id number] Not Available [facility] [address], [place], [address], 12/26/2021 13:08:28 12/20/19 23 12/19/2022 [facility] CYTOL [facility] results Wagner nt Name: IRALNDA COLMENARES nt : 1945 (Age: 77) Lab Acces maricruz #: [id number] Colle ction Date: 2022 Acces maricruz Date: 2022 Sign Out Date: 2022 Tissu e Sourc e: 1: THINP REP TEASEL SETTER PAP TEST, CERVI OFELIA: Final Diagn osis: NEGAT LARRY FOR INTRA EPITH ELIAL LESIO N OR MALIG WARREN . Atrop hy. Satis facto ry for evalu ation . Clini ofelia Histo ry: Date of Last Menst rual Perio d: not avail able Menst rual Histo ry: Post- menop ausal Hyste recto my: cervi x prese nt Contr acept larry Histo ry: not avail able Ancil mima Testi ng: HPV (ASCU S) Case image d by the ThinP rep Imagi ng Syste m with karla ruiz or ahmet ford Perfo rmed at [facility] ate Refer ence Labor atory depar tment of Cytol ogy, [address] [place] Clini ofelia Histo ry (othe r): Z91.8 9, routi ne scree n, LPS neg,h x colon ca Phone #: [phone], On-Ca ll Patho logis t: [id number] Not Available [facility] [address], [place], [address], 12/26/2022 16:34:30 03/05/19 25 03/09/2024 IGP, RFX APTIM A HPV ASCU diagnosis: Commen t NEGAT LARRY FOR INTRA EPITH ELIAL LESIO N OR MALIG WARREN . CELLU LAR NARAYANAN ES ASSOC IATED WITH ATROP HY ARE PRESE NT. Not Available [facility] ([facility]) [address], [place], [address], 03/09/2024 14:21:07 03/05/19 25 03/09/2024 IGP, RFX APTIM A HPV ASCU specimen adequacy: Commen t Satis facto ry for evalu ation . Endoc ervic al compo nent may not be disti nguis hed in cases of atrop hy. Not Available [facility] ([facility]) [address] [facility] [address], [place], [address], 03/09/2024 14:21:07 03/05/19 25 03/09/2024 IGP, RFX APTIM A HPV ASCU clinician provided ICD10: Libia ross Z91.8 9 Not Available [facility] ([facility]) [address] [place], [address], 03/09/2024 14:21:07 03/05/19 25 03/09/2024 IGP, RFX APTIM A HPV ASCU performed by: Libia Frazier , Lauren ross (ASCP ) Not Available [facility] ([facility]) [address] [place], [address], 03/09/2024 14:21:07 03/05/19 25 03/09/2024 IGP, RFX APTIM A HPV ASCU . . Not Available [facility] ([facility]) [address], [place], [address], 03/09/2024 14:21:07 03/05/19 25 03/09/2024 IGP, RFX APTIM A HPV ASCU note: Libia ross The Pap smear is a scree mahendra test desig ousmane to aid in the detec tion of adolfo ligna nt and malig nant condi tions of the uteri ne cervi x. It is not a diagn ostic proce dure and shoul d not be used as the sole means of detec ting cervi ofelia cance r. Both false -posi tive and false -nega tive repor ts do occur . Not Available [facility] ([facility]) [address] [place], [address], 03/09/2024 14:21:07 03/05/19 25 03/09/2024 IGP, RFX APTIM A HPV ASCU test methodology: Libia ross This liqui d based ThinP rep(R ) pap test was scree ousmane with the use of an image guide d systbabak m. Not Available [facility] ([facility]) [address] [place], [address], 03/09/2024 14:21:07 03/05/19 25 03/09/2024 IGP, RFX APTIM A HPV ASCU . Commen t The HPV DNA refle x crite lara were not met with this speci men resul t there fore, no HPV testi ng was perfo rmed. Not Available [facility] ([facility]) [address], [place], [address], 03/09/2024 14:21:07 04/05/19 22 04/05/2021 MAMMO , scree mahendra, digit al, bilat eral No observ ation record ed. [address] Diagnosit Imaging Dept [address] [place], [address], 04/05/2021 12:17:04 04/10/19 23 04/08/2022 MAMMO , scree mahendra, digit al, bilat eral No observ ation record ed. [address] [facility] Imaging Dept [address] [place], [address], 04/11/2022 08:17:29 04/15/19 23 04/08/2022 bone densi ty No observ ation record ed. [facility] (Central Scheduling Radiology) [address] [place], [address], 04/17/2022 08:50:50 Result Notes None recorded. Problems Name Problem SNOMED Code Status Onset Date Resolution Date Notes Provider Name and Address Organization Details Recorded Time Atrophic vaginitis 10231113 Active 2016 Miladys Veronica MD [address], [place], [address] , [place] - [facility], 7 10:29:49 History of malignant neoplasm of colon 430351650 Active Not Available [facility] 3 03:01:07 Senile osteopeni a 83750405 Active osteopenia Not Available [facility] 3 03:01:07 Vitamin D deficienc y 86540621 Active Not Available [facility] 3 03:01:07 History of adenomato us polyp of colon 715862923 Active Not Available [facility] 3 03:01:07 Notes:Had blood clots in kne e and lungs Problem Notes None recorded. Procedures Surgical History Date Name Laterality Status Provider Name and Address Organization Details Recorded Time 04/08/19 23 Most Recent Mammogram completed Mayra Connolly in [facility], 12/19/2022 10:27:32 04/08/19 23 Most Recent Bone Density completed Mayra Connolly in [facility], 12/19/2022 10:27:25 08/27/19 18 incision of thoracic wall and diaphragm completed Aviva Connolly in [facility], 12/18/2020 09:49:57 02/17/19 03 Other completed Miladys Veronica MD [address], [place], [address], [place] - [facility], 11/24/2013 09:24:59 02/17/18 81 Other completed Aviva Connolly in [facility], 10/13/2012 08:25:29 02/17/18 77 Total Abdominal Hysterectomy completed Miladys Veronica MD [address], [place], [address], [place] - [facility], 10/13/2012 09:24:34 Imaging Results Imaging Date Name Status LastModified by [facility] Details LastModified Time 04/05/2021 MAMMO, screening, digital, bilateral completed [address] Diagnosit Imaging Dept [address] [place], [address], 04/05/2021 12:17:04 04/08/2022 MAMMO, screening, digital, bilateral completed [address] Diagnosit Imaging Dept [address] [place], [address], 04/11/2022 08:17:29 04/08/2022 [facility] (Central Scheduling Radiology) [address] [facility], [place], [address], 04/17/2022 08:50:50 Procedure Notes None recorded. Medical Equipment None [...] Available Not Available No t Available Afluria 7609-6029(P F) 45 mcg (15 mcg x 3)/0.5 [...] Not Available No t Available Fluzone High-Dose 2655-0716 (PF) 180 mcg/0.5 mL intramuscul ar syringe ADM 0.5ML IM UTD active Not Available Not Available No t Available Fluzone High-Dose 2019-20 (PF) 180 mcg/0.5 mL intramuscul ar syringe ADM 0.5ML IM UTD active Not Available Not Available No t Available Vitals Date Recorded Body weight Body mass index (BMI) Body height Heart rate Body temperature Systolic blood pressure Diastolic blood pressure Provider Name and Address Organization Details Last Updated DateTime 1 48348.3 5 g 30.8 kg/m2 160.02 cm 65 /min 96.8 [degF] 128 mm[Hg] 65 mm[Hg] Aviva Connolly in [facility], 1 09:44:16 Date Recorded Body height Body mass index (BMI) Body weight Heart rate Systolic blood pressure Diastolic blood pressure Provider Name and Address Organization Details Last Updated DateTime 2 160.02 cm 34.5 kg/m2 37745.5 1 g 57 /min 125 mm[Hg] 67 mm[Hg] Mayra Connolly in [facility], 2 13:19:54 Date Recorded Body height Provider Name an d Address Organization Details Last Updated DateTime 04/17/2022 160.02 cm Mayra Turcios in [facility], 04/17/2022 09:58:03 Date Recorded Body height Body mass index (BMI) Body weight Systolic blood pressure Diastolic blood pressure Provider Name and Address Organization Details Last Updated DateTime 12/19/2022 160.02 cm 37.4 kg/m2 79252.99 g 118 mm[Hg] 67 mm[Hg] Mayra Connolly in [facility], 3 10:26:23 Date Recorded Body weight Body mass index (BMI) Body height Heart rate Systolic blood pressure Diastolic blood pressure Provider Name and Address Organization Details Last Updated DateTime 5 68474.4 5 g 38.8 kg/m2 160.02 cm 59 /min 126 mm[Hg] 78 mm[Hg] Aviva Connolly in [facility], 5 11:04:10 Social History Question Answer Notes LastModified by Organizat ion Details LastModified Time Tobacco Smoking Status Former Smoker Not Available [facility] 12/21/2019 03:19:42 What Is Your Level Of Alcohol Consumption? None [id number] Information not available 12/21/2019 What Is Your Level Of Caffeine Consumption? None [id number] Information not available 12/21/2019 In The 14 [...] Type Of Diet Are You Following? REGULAR [id number] Information not available 12/21/2019 Which Illicit Or Recreational Drugs Have You Used? No [id number] Information not available 12/21/2019 Do You Reside In Or Have You Traveled To An Area Where Ebola Virus Transmission Is Active? No [id number] Information not available 12/21/2019 Do You Or Have You Ever Used E-cigarettes Or Vape? Never Used Electronic Cigarettes [id number] Information not available 12/21/2019 Education 2 Year College Informatio n not available 10/13/2012 What Is The Highest Grade Or Level Of School You Have Completed Or The Highest Degree You Have Received? [id number] Information not available 12/18/2020 What Is Your Occupation? Retired [id number] Information not available 12/21/2019 How Many Days [...] available 12/18/2020 Are You Sexually Active? Yes [id number] Information not available 12/21/2019 Do You Or Have You Ever Used Smokeless Tobacco? Never Used Smokeless Tobacco [id number] Information not available 12/21/2019 How Much Tobacco Do You Smoke? No [id number] Information not available 12/21/2019 General Stress Level Low Information not available 10/13/2012 Do You Feel Stressed (tense, Restless, Nervous, Or Anxious, Or Unable To Sleep At Night)? [id number] Information not available 03/05/2024 Do You Use Any Illicit Or Recreational Drugs? No Information not available 12/18/2020 How Many Years Have You Smoked Tobacco? 15 [id number] Information not available 12/21/2019 Have You Recently [...] Time What is your exercise level? Moderate [id number] Information not available 12/21/2019 Mental Status None [...] zoster live 2 completed SAPNA Zhang in [facility], 12/19/2022 10:22:24 influenza, unspecified formulation 2 completed SAPNA Zhang in [facility], 12/19/2022 10:22:24 Influenza, split virus, trivalent, preservative 4 completed SAPAN Zhang in [facility], 12/19/2022 10:22:24 Influenza, split virus, quadrivalent, preservative 7 completed SAPNA Zhang in [facility], 12/19/2022 10:22:24 Influenza, split virus, quadrivalent, preservative 9 completed SAPNA Stout in [facility], 12/18/2018 08:53:19 Influenza, split virus, quadrivalent, preservative 1 completed SAPNA Zhang in [facility], 12/19/2022 10:22:24 COVID-19, mRNA, LNP-S, PF, 100 mcg/0.5mL dose or 50 mcg/0.25mL dose 1 completed SAPNA Zhang in [facility], 12/19/2022 10:22:24 Influenza, split virus, quadrivalent, preservative 2 completed SAPNA Zhang in [facility], 12/19/2022 10:22:24 Influenza, adjuvanted, trivalent, PF 8 completed Mayra Cuevas null, [place] - [facility], 12/19/2022 10:22:24 Influenza, high-dose, quadrivalent, PF 1 completed Mayra Cuevas null, [place] [facility], 12/19/2022 10:22:24 Influenza, adjuvanted, quadrivalent, PF 2 completed Mayra Cuevas [place], [place] [facility], 12/19/2022 10:22:24 COVID-19, mRNA, LNP-S, PF, 100 mcg/0.5mL dose or 50 mcg/0.25mL dose 1 completed Mayra Cuevas null, [place] - [facility], 12/19/2022 10:22:24 COVID-19, mRNA, LNP-S, [...] 10:22:24 pneumococcal polysaccharide PPV23 0 completed Mayra Cuevas null, [place] [facility], 12/19/2022 10:22:24 influenza, unspecified formulation 2 completed Mayra Cue[place] null, [place] [facility], 12/19/2022 10:22:24 zoster live 2 completed Mayra Cuevas null, [place] [facility], 12/19/2022 10:22:24 zoster live 2 completed Mayra vergara [place] - [facility], 12/19/2022 10:22:24 Influenza, high-dose, trivalent, PF 7 completed Mayra vergara [place] - [facility], 12/19/2022 10:22:24 Influenza, split virus, trivalent, preservative 4 completed Mayra vergara [place] - [facility], 12/19/2022 10:22:24 Influenza, split virus, trivalent, preservative 1 completed Mayra vergara [place] - [facility], 12/19/2022 10:22:24 Influenza, split virus, trivalent, preservative 0 completed Mayra vergara [place] - Cathleen in [facility], 12/19/2022 10:22:24 Influenza, split virus, trivalent, preservative 2 completed Mayra vergara [place] [facility], 12/19/2022 10:22:24 Influenza, split virus, trivalent, PF 0 completed Mayra vergara [place] [facility], 12/19/2022 10:22:24 Influenza, split virus, trivalent, PF 6 completed Marya vergara [place] - [facility], 12/19/2022 10:22:24 Td (adult), 2 Lf tetanus toxoid, preservative free, adsorbed 0 completed Mayra vergara [place] [facility], 12/19/2022 10:22:24 Past Encounters Encounter ID Performer Location Encounter Start Date Encounter Closed Date Diagnosis/Indication Diagnosis SNOMED-CT Code Diagnosis ICD10 Code Diagnosis Note [id number] MILADYS VERONICA MD [address] [facility], [address] [place] [id number] 10/13/2012 08:04:49 10/13/2012 10:03:37 [id number] Aviva Mecred VERONICA MD [address] [place] [address],[address] [id number] 11/24/2013 09:00:44 11/24/2013 12:11:11 Screening for malignant neoplasm of cervix 217577799 Screening mammography 22093150 [id number] AmosRosie YatesMicahnoel VERONICA MD [address] [place] [address],[address] [id number] 11/30/2014 08:27:35 11/30/2014 11:19:11 Sampling of vagina for Papanicolaou smear 230202223 Z01.419 Screening mammography 24 218246 Z12.31 [id number] MD MILADYS Mane MD [address] [place] [id number] 12/16/2016 09:55:18 12/16/2016 15:21:11 Screening for malignant neoplasm of cervix 415988307 Z12.4 Screening mammography 24 244540 Z12.31 Atrophic vaginitis 84092 000 N95.2 Cares for self 522654267 Z76.89 Senile osteopenia 963924 06 M85.80 [id number] MD MILADYS Mane MD [address] [place] [phone] 5 12/18/2018 08:43:51 12/18/2018 10:32:29 Screening for malignant neoplasm of cervix [id number] Z12.4 Screening mammography 24 742139 Z12.31 Screening for osteoporosis [id number] Z13.820 [id number] MD MILADYS Mane MD [address] [place] [phone] 5 12/18/2020 09:38:53 12/18/2020 11:05:45 Screening for malignant neoplasm of cervix [id number] Z12.4 Screening mammography 24 045841 Z12.31 Screening for osteoporosis [id number] N95.8 [id number] MD MILADYS Mane MD [address] [place] [phone] 5 12/18/2021 13:14:14 12/18/2021 15:08:24 History of clinical finding in subject 015125127 Z91.89 Screening mammography 24 286928 Z12.31 Advance care planning 71 6221425 Z71.89 Screening for osteoporosis [id number] N95.8 [id number] MD MILADYS Mane MD [address] [facility] [place] [address] 04/17/2022 09:56:14 04/17/2022 11:53:58 Senile osteopenia 74264500 M85.852 Vitamin D deficiency 347 35650 E55.9 [id number] MD MILADYS Mane MD [address] [facility] [place] [address] 12/19/2022 10:20:55 12/19/2022 11:21:02 History of clinical finding in subject 002091204 Z91.89 Screening mammography 24 968099 Z12.31 Advance care planning 71 7626626 Z71.89 Screening for osteoporosis 815704374 N95.8 [id number] MD MILADYS Mane MD [address] [facility] [place] [phone] 03/05/2024 10:56:45 03/05/2024 12:01:39 History of clinical finding in subject [id number] Z91.89 Screening mammography 24 942999 Z12.31 Advance care planning 71 5690689 Z71.89 Screening for osteoporosis [id number] N95.8 Health Concerns Section Related Observation LastModified by Organization Detai ls LastModified Time None Recorded Concern Status LastModified by Organization Details LastModified Time None Recorded Advance Directives Directive None Recorded Payers Encounter Date Sequence Insurance Name Policy Number Policy Steward Covered Member ID Steward Member ID Guarantor Name 12/18/2020 1 MEDICARE B-[place]: [employer] Irlanda Henderson [id number] Irlanda Henderson 12/18/2020 1 [facility] 1 (MEDICARE SUPPLEMENT) [id number] Irlanda Henderson [id number] Irlanda Henderson 12/18/2021 1 MEDICARE B-UT: [employer] Irlanda Henderson [id number] Irlanda Henderson 12/18/2021 1 [facility] - PLAN 1 (MEDICARE SUPPLEMENT) [id number] Irlanda FletcherHenderson [id number] Irlanda Henderson 04/17/2022 1 MED[place] B-[place]: [facility] SERVICES Irlanda Fletcherzgerald [id number] Irlanda FletcherHenderson 04/17/2022 1 [facility] [place] - PLAN 1 (MEDICARE SUPPLEMENT) [id number] Irlanda Henderson [id number] Irlanda Henderson 12/19/2022 1 [place]: [facility] Irlanda Fletcherzgerald [id number] Irlanda Henderson 12/19/2022 1 [facility] - PLAN 1 (MEDICARE SUPPLEMENT) [id number] Irlanda Henderson [id number] Irlanda Henderson 03/05/2024 1 [facility] (MEDICARE REPLACEMENT/ ADVANTAGE - PPO) [id number] Irlanda Martinezgerald [id number] Irlanda Martinezgerald Notes Date Note Type Note Provider Name and Address Organization Details Recorded Time 12/18/2020 text/html She is here for annual exam, is doing well, still working at the [employer]. Note from 2019: She is here for annual exam, is doing well, has not used the E2 cream in a year and doesnt have an symptoms yet, will call if elects to begin again.She was recently diagnosed with mild cognitive impairment, she was started on donepezil. Her child is her health care proxy. Miladys Veronica MD [address] [facility],[address], [place], [phone], [employer] in [facility], 12/18/2020 10:45:37 12/18/2021 text/html She is here for annual exam, is doing well, still working at the [employer]. Miladys Veronica MD [address] [facility],[address], [place], [phone], [employer] [facility], 12/18/2021 13:39:05 04/17/2022 text/html This visit is a phone telehealth visit. The patient consented to the visit by phone. The patient was at home at the time of the call and the provider and patient were the only people on the line. I was at [address] [facility], [address], [place], [place], at the time of the call. Her recent bone density showed decreased bone density compared to prior test, 7.1% right femur, 11% left femur. Still ,it is only mild osteopenia. Miladys Veronica MD [address] [facility],[address], [place], [phone], [employer] in [facility], 04/17/2022 11:52:31 12/19/2022 text/html She is here for annual exam, is doing well, still working at the [employer]. Miladys Veronica MD [address] [facility],[address], [place], [phone], [employer] [facility] [employer] [facility], 12/19/2022 10:49:47 03/05/2024 text/html She is here for annual exam, is doing well, still working at the [employer].She appears to be doing well.. Miladys Veronica MD [address] [facility],[address], [place], [phone], [employer] [facility] [employer] [facility], 03/05/2024 11:31:40 OBGyn Episode No OBEpisode recorded.
--- OUTSIDE RECORDS SUMMARY | 2024-03-30 13:10 | XMS_ITS | Clinical Summary ---
Author Organization [facility] [address] [facility] Address [address] [place] [address] Phone Care Team Providers Care Industrial Ecology Technician Name Role Phone Dayton Bautista Primary Care Provider [phone] Allergies No known active allergies Medications acetaminophen (TYLENOL ARTHRITIS PAIN ORAL) Acetaminophen (TYLENOL ARTHRITIS EXT RELIEF OR) Take by mouth. Active apixaban (ELIQUIS) 5 mg tablet Take 5 mg by mouth 2 Times Daily. Active aspirin 81 mg EC tablet 1 TABLET DAILY Activ e citalopram (CeleXA) 20 mg tablet Take 1 tablet by mouth 2 times daily. Active donepeziL (ARICEPT) 10 mg tablet 0 Active fesoterodine 8 mg tablet extended release 24 hr Take 1 tablet by mouth daily. Active fexofenadine (LEO) 180 mg tablet Take 180 mg by mouth daily. Active pantoprazole (PROTONIX) 40 mg EC tablet Take 1 Tablet by mouth 2 Times Daily. Active Bifidobacteriu m infantis (ALIGN ORAL) Take by mouth. Ac tive rosuvastatin (CRESTOR) 10 mg tablet Take 1 Tablet by mouth at bedtime. Active solifenacin (VESICARE) 5 mg tablet Take 2 Tablets by mouth daily. Active traZODone (DESYREL) 50 mg tablet Take 1 Tablet by mouth at bedtime. Active cyanocobalamin (VITAMIN B-12) 500 mcg tablet Take 500 mcg by mouth daily. Active Active Problems Problem Noted Date Diagnosed Date Primary osteoarthritis of right knee 01/08/2021 Immunizations Name Administration Dates Next Due Influenza trivalent, with pr eservative (Fluzone; Afluria) 6mo and older 12/18/2011,11/29/2010,12/06/2009 Pneumococcal polysaccharide 23 valent (Pneumovax 23) 2yo and older 03/20/2009 Td Tetanus diptheria (Tdvax) 7yo and older 03/03 Zoster Live 10/16/2011 Surgical History Surgery Date Site/Laterality Comments HYSTERECTOMY in her 30s PROCEDURE: HISTORICAL TOTAL HYSTERECTOMY WITH BSO TONSILLECTOMY 3yo PROCEDURE: HISTORICAL TONSILLECTOMY OTHER SURGICAL HISTORY 01/17/1994 PROCEDURE: MA URETHRORRHAPHY SUTR URETHRAL WOUND/INJ FEMALE; COMMENT: split OTHER SURGICAL HISTORY 12/15/2009 PROCEDURE: MA EXCISION TUMOR SOFT TISS FACE/SCALP SUBQ 2 CM/>; COMMENT: Dr. Rodgers- 2.5cm lipoma forehead OTHER SURGICAL HISTORY 06/26/2011 Left PROCEDURE: MA ARTHRS KNE SURG W/MENISCECTOMY MED/LAT W/SHVG; COMMENT: Dr. Oh Medical History Medical History Date Comments Anxiety and depression 03/03/2009 DX:Anxiet y and depression; COMMENT: overdose in 1990 Nefazodone requires annual LFTs; 06/28 - is backordered; switched to citalopram Eczema 03/03/2009 DX:Eczema Former smoker 10/27/2017 DX:Former smoker Heel spur 03/03/2009 DX:Heel spur; CO MMENT: Dr. Ordonez History of colonic polyps 03/03/2009 DX:His tory of colonic polyps; COMMENT: Dr. Puentes Hypertension 03/03/2009 DX:Hypertension Obesity 03/03/2009 DX:Obesity Seasonal allergic rhinitis 10/27/2017 DX:Se asonal allergic rhinitis Colon cancer (CMS/HCC) DX:Colon cancer (HCC) Chronic kidney disease DX:Chroni c kidney disease Coronary atherosclerosis DX:Katy nary atherosclerosis Family History Medical History Relation Name Comments Heart attack Father at 62yo Relation Name Status Comments Father Mother Social History Tobacco Use Types Packs/Day Years Used Date Smoking Tobacco: Former Cigarettes Q uit: 02/17/1974 Smokeless Tobacco: Never Alcohol Use Standard Drinks/Week Comments No 0 (1 standard drink = 0.6 oz pur e alcohol) Comments Unknown Sex and Gender Information Value Date Recorded Sex Assigned at Not on file Legal Sex Female 5:02 PM EST Gender Identity Not on file Sexual Orientation Not on file Obstetrics History Last Filed Vital Signs Vital Sign Reading Time Taken Comments Blood Pressure - - Pulse - - Temperature - - Respiratory Rate - - Oxygen Saturation - - Inhaled Oxygen Concentration - - Weight 102 kg (225 lb) 05/02/2023 8:03 AM EDT Height 157.5 cm (5' 2 ) 05/02/2023 8:03 AM EDT Body Mass Index 41.15 05/02/2023 8:03 AM EDT Plan of Treatment Health Maintenance Due Date Last Done Comments COVID-19 Vaccine (#1) 08/16/1950 DTaP,Tdap,and Td Vaccines (2 - Td or Tdap) 03/31/2009 03/03/2009 Pneumococcal Vaccine: 50+ Years (2 of 2 - PCV) 03/20/2010 03/20/2009 Zoster Vaccines (2 of 3) 12/11/2011 10/16/2011 RSV Immunization Patients 60+ Years Old (1 - 1-dose 75+ series) 08/16/2018 Cholesterol Screening (Lipid Panel) 01/16/2022 01/08/2010 Colorectal Cancer Screening: Colonoscopy 01/16/2022 12/27/2011 Depression Screening 01/16/2022 Falls Risk Assessment 01/16/2022 Medicare Annual Wellness Visit 01/16/2022 Social Influencers of Health Screening 01/16/2022 Influenza Vaccine (#1) 2023 2, 09/30/2020, 12/18/2011, Additional history exists Osteoporosis Screening (Bone Density Screening) 04/08/2032 04/08/2022, 05/03/2019 HIB Vaccines Aged Out No longer eligi ble based on patient's age to complete this topic HPV Vaccines Aged Out No longer eligi ble based on patient's age to complete this topic Hepatitis A Vaccines Aged Out No long er eligible based on patient's age to complete this topic Hepatitis B Vaccines Aged Out No long er eligible based on patient's age to complete this topic IPV Vaccines Aged Out No longer eligi ble based on patient's age to complete this topic MMR Vaccines Aged Out No longer eligi ble based on patient's age to complete this topic Meningococcal ACWY Vaccine Aged Out N o longer eligible based on patient's age to complete this topic Meningococcal B Vacine Aged Out No lo nger eligible based on patient's age to complete this topic RSV Immunization Patients Under 20 months Aged Out No longer eligible based on patient's age to complete this topic Varicella Vaccines Aged Out No longer eligible based on patient's age to complete this topic Procedures Procedure Name Priority Date/Time Associated Diagnosis Comments ALBERTINA DEXA AXIAL SKELETON Routine 04/08/2022 9:50 AM EST Encounter for screening for osteoporosis HM COLONOSCOPY Routine 12/27/2011 LIPID PANEL Routine 01/08/2010 from Last 3 Months or Most Recently Relevant to Health Maintenance Results * ALBERTINA DEXA AXIAL SKELETON (04/08/2022 9:50 AM EST) Anatomical Region Laterality Modality Mammography 04/08/2022 8:59 AM EST Narrative 04/08/2022 9:50 AM EST [facility] Diagnostic Imaging Department [address] [place] [address] Patient: ??MARI MOTA ?/Age/Sex: 1945 - 76 - F Unit#: ??[id number] ? Location/Status: ??SPDIMAM/REG CLI ? Mnemonic/Ordering Site: ??MAMDEXAAX/SPMAM Ordering Physician: ??MILADYS AGEE MD [facility] Dexa Axial Skeleton - 04/08/22942 HISTORY: ??The patient is a 76-year-old postmenopausal female with clinical concern for metabolic bone disease. FINDINGS: ??Dual energy x-ray absorptiometry of the lumbar spine and femurs is performed. The mean bone mineral density at L1-L4 is 1.271 gm/cm2 which is 108% of that of young normals and 116% of that of age matched controls. This yields a T-score of 0.8 and a Z-score of 1.5 and there is therefore no evidence of osteoporosis or osteopenia here. The mean bone mineral density of the femurs bilaterally is 0.986 gm/cm2 which is 98% of that of young normals and 114% of that of age matched controls. ??This yields a T-score of -0.2 and a Z-score of 1.0 and there is therefore no evidence of osteoporosis or osteopenia here. ??However, the T-score of the left femoral neck is -1.2 which is diagnostic of osteopenia. IMPRESSION: 1. Osteopenia. ??There has been an increase of 6.2% in bone mineral density in the lumbar spine since the prior examination of 05/03/2019. ??There has been a decrease of 7.1% in bone mineral density in the right femur and a decrease of 11.0% in bone mineral density in the left femur. 2. FRAX analysis yields a 10-year probability of major osteoporotic fracture of 12.3% and a 10-year probability of hip fracture of 1.3%. Code 55473 Dictating Physician: ??VICKI LUX MD Electronically Signed by: ??VICKI LUX MD Dic Date/Time: ??04/08/22 0949 Sign date/Time: ??04/08/22 0950 Procedure Note Vicki Lux MD - 03/21/2023 [facility] Diagnostic Imaging Department [address] [place], [place] [id number] Patient: MARI MOTA /Age/Sex: 1945 76 - F Unit#: [id number] Location/Status: [facility] Mnemonic/Ordering Site: [facility] Ordering Physician: MILADYS AGEE MD [facility] Dexa Axial Skeleton - 04/08/22942 HISTORY: The patient is a 76-year-old postmenopausal female withclinical concern for metabolic bone disease. FINDINGS: Dual energy x-ray absorptiometry of the lumbar spine and femursis performed. The mean bone mineral density at L1-L4 is 1.271 gm/cm2 which is108% of that of young normals and 116% of that of age matched controls. Thisyields a T-score of 0.8 and a Z-score of 1.5 and there is therefore no evidenceof osteoporosis or osteopenia here. The mean bone mineral density of the femurs bilaterally is 0.986 gm/rp2blcbw is 98% of that of young normals and 114% of that of age matched controls.This yields a T-score of -0.2 and a Z-score of 1.0 and there is therefore noevidence of osteoporosis or osteopenia here. However, the T-score of the leftfemoral neck is -1.2 which is diagnostic of osteopenia. IMPRESSION: 1. Osteopenia. There has been an increase of 6.2% in bone mineral densityin the lumbar spine since the prior examination of 05/03/2019. There has ravinder decrease of 7.1% in bone mineral density in the right femur and a decreaseof 11.0% in bone mineral density in the left femur. 2. FRAX analysis yields a 10-year probability of major osteoporoticfracture of 12.3% and a 10-year probability of hip fracture of 1.3%. Code 99131 Dictating Physician: VICKI LUX MD Electronically Signed by: VICKI LUX MD Dic Date/Time: 04/08/22 0949 Sign date/Time: 04/08/2250 Miladys Agee MD IMG BI PROCEDURES Final Resu lt * Hm Colonoscopy (12/27/2011) Colonoscopy no interpretation , abstracted Anatomical Region Laterality Modality Other Historical Provider HEALTH MAINTENANCE Final Result * (ABNORMAL) Lipid panel (01/08/2010) LDL/HDL Ratio 3 0 - 4 Triglycerides 111 0 - 150 mg/dL Cholesterol 224(A) 0 - 200 mg/dL HDL 70 >=40 mg/dL LDL Cholesterol 132(A) 0 - 100 mg/dL Blood Venous blood specimen / Unknown Historical Provider LAB BLOOD ORDERABLES Gabriela l Result from Last 3 Months or Most Recently Relevant to Health Maintenance Insurance [employer] MEDICARE Care Teams Industrial Ecology Technician Relationship Specialty Start Date End Date Dayton Bautista DO [address] [place], [place] PCP - General 09/29/17
== END 2024-03-30 12:11 | disposition home or self-care (01) ==
LOC: HO.HUSH 11:31
PROVIDERS: PCP Family Medicine; Visit Provider Nurse Practitioner Family
DX: N20.0 Calculus of kidney (principal); N28.1 Cyst of kidney, acquired; N32.81 Overactive bladder
CPT/HCPCS: 99213

== ENCOUNTER 2025-01-21 08:40 | Outpatient (AMB) | payer MEDICARE, SELFPAY ==
--- NOTE | 2025-01-21 08:48 | A.OFFVIS_ITS ---
Intake Visit Reasons: 1 year follow up Allergies No Known Allergies (No Known Allergies*) Allergy (Verified 01/21/25 08:51) Medication List - Last Reconciled 01/21/25 by Ursula Noriega CNP apixaban (Eliquis) mg PO citalopram mg PO donepezil 10 mg PO BEDTIME 90 days memantine mg PO BID pantoprazole mg PO rosuvastatin mg PO solifenacin (Vesicare) 5 mg PO DAILY 90 days trazodone 100 mg PO BEDTIME PRN 30 days HPI Comments Details: She was doing okay. Memory was stable. She was functioning well, driving without issue, and working part-time at the [employer] 15-20 hours/week which she enjoys. She has a 33-year-old horse that she visits and still goes horseback riding, reads, and does puzzles. Sleep was okay. Mood was okay. Some problems with cognitive abilities beginning around 2017. She lives with a male accounting clerk for 10+ years. 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 No persistent memory loss. Has been treated for mild anxiety and depression. No hx of head trauma. Has some difficulty falling asleep at night and gets up twice to use bathroom. She snores at night, but is unclear if she stops breathing. Has some urinary bladder control problems, underwent workup. Has some back and joint pains as well. [facility] Medical History (Updated 01/21/25 @ 08:50 by Ursula Noriega CNP) Insomnia MCI (mild cognitive impairment) Renal cyst Review of Systems Const Denies chills, Denies daytime sleepiness, Reports difficulty sleeping, Denies fatigue, Denies fever(s), Denies frequent falls, Reports headache(s), Denies increased appetite, Denies poor appetite, Denies snoring, Denies weakness, Denies weight gain and Denies weight loss Eyes Denies loss of vision ENT Denies vertigo, Denies dizziness, Reports headache(s) and Denies neck pain Card Denies chest pain at rest, Denies chest pain with activity, Denies syncope, Denies leg edema, Denies palpitations, Denies dyspnea and Denies dyspnea on exertion Resp Denies cough, Denies dyspnea, Denies dyspnea on exertion and Denies snoring GI Denies abdominal pain, Denies constipation, Denies heartburn, Denies diarrhea and Denies nausea Denies urinary frequency, Denies urinary incontinence and Reports urinary urgency Musc Denies abnormal gait, Reports back pain, Denies myalgias, Reports arthralgias, Denies neck pain, Denies numbness and Denies tingling Neuro Denies abnormal gait, Denies vertigo, Denies dizziness, Denies syncope, Denies frequent falls, Reports headache(s), Denies lack of coordination, Denies loss of vision, Reports memory loss, Denies numbness, Denies Other visual disturbances, Denies restless legs, Denies seizure-like activity, Denies tingling, Denies paresthesias, Denies tremor(s) and Denies weakness Psych Denies anxiety, Reports depression, Denies auditory hallucinations, Reports memory loss and Denies visual hallucinations Endo Denies fatigue and Denies palpitations Physical Exam Const Other: General Appearance:? normal, in no acute distress. Heart:? S1, S2 normal, no murmurs. Lungs:? clear anteriorly and posteriorly. Musculoskeletal:? normal. Extremities:? no edema. Psych:? alert, as below. Neuro Other: Abnormal Neurological Findings:?MMSE 30/30 Mental Status: alert, as below. Cranial Nerves: Pupils are equal, round, and reactive to light. External ocular muscles are intact. Visual vega are full, no ptosis. Face is symmetrical, no facial weakness or droop. Facial sensations are normal. Tongue protrudes in midline. Palate elevates symmetrically. Shoulder shrugging is normal Motor Examination: Normal muscle tone, bulk and strength. No atrophy or fasciculations. No drift of the extended upper extremities. DTR 2+. Plantars are flexor. Sensory Exam: Normal light touch, temperature, pinprick, vibration, and joint- position sensations. Rhomberg sign is absent. Coordination: No ataxia. No titubation. Gait Exam: Within normal limits. Cerebellar Signs: [id number] is okay. Extrapyramidal System: No tremor, rigidity with normal facial expressions. No bradykinesia. No bradyphrenia. Normal arm swing and posture. No propulsion or retropulsion. Speech: Normal. MMSE Level of Consciousness: Alert. Orientation: Knows correct year, month, date, day and season. Knows correct city, county and state. Knows correct location and floor. Registration: Able to register 3 objects. Attention: Serial 7's performed accurately to 65. Recall: Able to recall 3 out of 3 objects. Language: Normal spontaneous speech, fluency, repetition, naming, comprehension, reading, and writing. Total Score: 30/30. Assessment & Plan Assessment & Plan (1) MCI (mild cognitive impairment): Code(s): G31.84 - Mild cognitive impairment of uncertain or unknown etiology Category: Medical Plan: Continue donepezil 10mg 1 tablet at bedtime. Continue memantine 10mg 1 tablet twice a day. Stay physically and socially active. Follow up in 1 year or sooner as needed. Coding Level of Care Code Est Pt Level 4 (23645) Diagnoses MCI (mild cognitive impairment) G31.84
== END 2025-01-21 09:00 | disposition home or self-care (01) ==
LOC: HO.HSM 08:41
PROVIDERS: PCP Family Medicine; Visit Provider Registered Nurse
DX: G31.84 Mild cognitive impairment of uncertain or unknown etiology (principal)
CPT/HCPCS: 99214